=== PATIENT | female | born 1950 | race African-American/Black ===

== ENCOUNTER 2019-02-01 12:09 | Emergency (ER) | payer OTHER ==
[2019-02-01] MEDS ORDERED: SODIUM CHLORIDE 1,000 ML IV SCH (12:15)
--- NOTE | 2019-02-01 12:28 | PDOC ---
History of Present Illness - General Stated Complaint: CVA/TIA Time Seen by Provider: 02/01/19 12:19 - History of Present Illness Initial Comments: 02/01/19 12:25 HPI: 68 y/o F with hx of HTN, HLD, IDDM1, meningioma (on recent MRI), ovarian CA s/p hysterectomy and BSO, colon CA s/p partial colectomy presenting from Dr Hugo's clinic for ruleout stroke. Patient was in her normal state of health at 6am but around 7-8am she felt weakness in her BL legs and had a fall without syncope or LOC. She states she was on the ground for 15-20min because she felt too weak to get up. When she was able to get up she felt weakness in her arms as well as dysphagia and wasnt able to swallow any liquids. During this time she reports LH and SOB. She denies chest pain, abd pain, diaphoresis, n/v, incontinence PMHx: as noted above ROS: as noted SHx: Denies tobacco use; no alcohol use; no rec drugs Allergies: penicillin -> anaphylaxis ROS: GENERAL/CONSTITUTIONAL: No fever or chills. No weakness. HEAD, EYES, EARS, NOSE AND THROAT: No change in vision. No ear pain or discharge. No sore throat. CARDIOVASCULAR: +shortness of breath RESPIRATORY: No cough, wheezing, or hemoptysis. GASTROINTESTINAL: No nausea, vomiting, diarrhea or constipation. GENITOURINARY: No dysuria, frequency, or change in urination. MUSCULOSKELETAL: No joint or muscle swelling or pain. No neck or back pain. SKIN: No rash NEUROLOGIC: No headache, vertigo, loss of consciousness; +change in strength/ sensation. ENDOCRINE: No increased thirst. No abnormal weight change HEMATOLOGIC/LYMPHATIC: No anemia, easy bleeding, or history of blood clots. ALLERGIC/IMMUNOLOGIC: No hives or skin allergy. PE: GENERAL: Awake, alert, and fully oriented, no acute distress HEAD: No signs of trauma, normocephalic, atraumatic EYES: EOMI, sclera anicteric, conjunctiva clear ENT: Auricles normal inspection, hearing grossly normal, nares patent, oropharynx clear without exudates. Moist mucosa NECK: Normal ROM, no lymphadenopathy LUNGS: No increased work of breathing, symmetrical chest rise, clear to auscultation bilaterally, no wheezes, crackles or rhonchi HEART: tachycardia regular rhythm, normal S1 and S2, no murmurs, peripheral pulses 2+ and equal bilaterally. ABDOMEN: Soft, nondistended, nontender, normoactive bowel sounds. No guarding, no rebound. No masses. No CVAT EXTREMITIES: Normal inspection, Normal range of motion, no edema. No clubbing or cyanosis. NEUROLOGICAL: left sided upper and lower droop, facial sensation intact, left U/ L extremities 4/5 str, right side 5/5, no ataxia, mild dysarthria, gait deferred SKIN: Warm, Dry, normal turgor, no rashes or lesions noted tPA Exclusion checklist 3-4.5h - Time Elapsed Date last known well: 02/01/19 Time last known well: 07:00 Elaspsed time: Day(s) and 6 Hour(s) and 1 Minutes - Thrombolytic Therapy Candidate Is patient eligible for thrombolytic therapy: No - Exclusion Criteria 3-4.5 hr SBP greater than 185 or DBP greater than 110mmHg despite tx: No Recent IC/spinal surgery,head trauma or stroke<3mos.: No Hx IC hemorrhage, IC neoplasm, AV malformation or aneurysm: No Active internal bleeding: No Blding diathesis(low plt ct, inc PTT,INR>1.7 or use of NOAC): No Symptoms suggest subarachnoid hemorrhage: No CT demonstrates multilobar infarct(>1/3 cerebral hemiphere): No Arterial puncture at noncompressible site in previous 7 days: No Blood glucose concentration less than 50mg/dL (2.7mmol/L): No - Relative Exclusion Criteria 3-4.5 hr Life expectancy <1 yr or severe co-morbid illness: No : No Patient/family refused: No Rapid improvement: No Stroke severity too mild: No Recent acute [place] (w/in previous 3 months): No Seizure at onset with postictal residual neuro impairments: No Major surgery or serious trauma w/in previous 14 days: No Recent GI or hemorrhage (w/in previous 21 days): No - Add'l Relative Exclusion 3-4.5 hr Age > 80: No Hx of both diabetes AND prior ischemic stroke: No Taking an oral anticoagulant regardless of INR: No NIHSS >25: No - Ineligibility reason(s) Reasons No tPA given: Outside of window - delayed arrival NIH Stroke Scale - Last Known Well Date/Time & Onset Date Last Known Well: 02/01/19 Time Last Known Well: 07:00 - Initial Evaluation Level of consciousness: Alert Ask patient the month and their age: Answers both correctly Ask patient to open & close eyes; make fist and let go: Obeys both correctly Best gaze (horizontal eye movement): Normal Visual field testing: No visual field loss Facial paresis (Show teeth/raise eyebrows/close eyes tight): Complete paralysis of one or both sides (Upper and lower face) Motor Function: Left Arm: Drift Motor Function: Right Arm: Normal (extends arm 90 (or 45) degrees for 10 seconds without drift Motor Function: Left Leg: Drift Motor Function: Right Leg: Normal (extends leg 30 degrees for 5 seconds without drift) Limb Ataxia: No ataxia Sensory(Use pinprick test arms,legs,trunk,face/side to side): Normal Best language (Describe picture, name items, read sentences): No Aphasia Dysarthria (read several words): Mild to moderate slurring of words Extinction and Inattention: No abnormality - Total Score NIH Stroke Scale Score: 6 Past History - Past Medical History Allergies/Adverse Reactions: Allergies Allergy/AdvReac Type Severity Reaction Status Date / Time codeine [Codeine] Allergy Verified 02/01/19 12:34 Penicillins Allergy Verified 02/01/19 12:34 Home Medications: Ambulatory Orders Diltiazem Cd [Cardizem Cd -] 240 mg PO DAILY 07/19/14 Fluticasone Propionate [Flovent Diskus] 50 mcg IH 07/19/14 Losartan Potassium 50 mg PO DAILY 07/19/14 Montelukast Na [Singulair -] 10 mg PO HS 07/19/14 Allopurinol [Zyloprim -] 100 mg PO DAILY 02/01/19 Aspirin [ASA -] 81 mg PO DAILY 02/01/19 Atorvastatin Ca [Lipitor] 40 mg PO HS 02/01/19 Carvedilol 25 mg PO DAILY 02/01/19 Dulaglutide [Trulicity] 0.75 mg SQ WEEKLY 02/01/19 Latanoprost 0.005% Eye Drops [Xalatan 0.005% Eye Drops -] 1 drop OU HS 02/01/19 Anemia: No Asthma: No Cancer: Yes (HX.COLON CANCER) Cardiac Disorders: No CVA: No COPD: No CHF: No Dementia: No Diabetes: Yes GI Disorders: Yes (CONSTIPATION,COLON CANCER,DIVERTICULOSIS) Disorders: No HTN: Yes Hypercholesterolemia: Yes Liver Disease: No Seizures: No Thyroid Disease: No - Surgical History Abdominal Surgery: Yes (LAP BNANDING,UMBILICAL HERNIA) Appendectomy: No Cardiac Surgery: No Cholecystectomy: Yes Lung Surgery: No Neurologic Surgery: No Orthopedic Surgery: Yes (ROTATOR CUFF RIGHT,ARTHROSCOPY R) - Psycho Social/Smoking Cessation Hx Smoking History: Current some day smoker Have you smoked in the past 12 months: Yes Hx Alcohol Use: No Drug/Substance Use Hx: No Substance Use Type: None Hx Substance Use Treatment: No ED Treatment Course - LABORATORY CBC & Chemistry Diagram: 02/01/19 12:20 02/01/19 12:20 - ADDITIONAL ORDERS Additional order review: Laboratory Results 02/01/19 12:14 POC Glucometer 208 02/01/19 12:14 POC Glucometer 208 Medical Decision Making - Medical Decision Making 02/01/19 13:43 68 y/o F with hx of HTN, HLD, IDDM1, meningioma (on recent MRI), ovarian CA s/p hysterectomy and BSO, colon CA s/p partial colectomy presenting from Dr Hugo's clinic for ruleout stroke with left sided weakness and left facial droop. Initial BP 208/121 with HR 118 and improvement without intervention to BP 148/ 102 PE notable for NIHSS 6, dysarthria, slurred speech, left sided facial droop , LUE/LLE 4/5 str. -stroke order set 02/01/19 14:14 Cr 1.9 trop 0.31 WBC 11.7 ekg sinus tach cth: no acute bleed; stable meningioma from last mri; chronic infarcts discussed with Dr Rivera; given Cr 1.9 will transfer to [facility] for fruther eval; not amenable to CTA Spoke to Dr Roman (neuro) and Dr Ashley (ED); transfer accepted patient received 324 ASA per rectum ivf Transfer and arrived; neuro team wanted HR below 110 before transfer; most recent HR 105 Discharge - Discharge Information Problems reviewed: Yes Clinical Impression/Diagnosis: CVA (cerebral vascular accident) Qualifiers: CVA mechanism: unspecified Qualified Code(s): I63.9 - Cerebral infarction, unspecified Condition: Stable Disposition: TRANSFER ACUTE CARE/OTHER HOSP - Follow up/Referral - Patient Discharge Instructions - Post Discharge Activity - Transfer to Acute Care Facility Receiving Facility Name: [facility] Accepting Physician:: Ulises Ashley (ED) and Dai Roman (stroke attending)
[2019-02-01 12:40] VITALS: BMI 41.1
[2019-02-01 12:40] LABS: EOS % 2.9 % (0-4.5); HEMATOCRIT 38.9 % (32.4-45.2); HEMOGLOBIN 12.4 GM/dL (10.7-15.3); MCH 30.4 pg (25.7-33.7); MEAN CELL VOLUME 95.1 fl (80-96); MEAN PLT VOLUME 10.6 fl (7.5-11.1); MONO % 5.4 % (3.8-10.2); NEUT % 77.7 % (42.8-82.8); PLATELET COUNT 143 K/MM3 (134-434); RBC 4.09 M/mm3 (3.60-5.2); RDW 14.2 % (11.6-15.6); WHITE BLOOD COUNT 11.7 K/mm3 (4.0-10.0)
--- NOTE | 2019-02-01 12:41 | PDOC ---
Documentation entered by Asif Bullard SCRIBE, acting as scribe for Dominick Marti MD. Dominick Marti MD: This documentation has been prepared by the Aleah munguia Xhesika, SCRIBE, under my direction and personally reviewed by me in its entirety. I confirm that the documentation accurately reflects all work, treatment, procedures, and medical decision making performed by me. Attending Attestation - Resident Resident Name: Iza Mccarthy - ED Attending Attestation I have performed the following: I have examined & evaluated the patient, The case was reviewed & discussed with the resident, I agree w/resident's findings & plan, Exceptions are as noted - HPI HPI: 02/01/19 12:29 The patient is a 68 year old female with a significant PMH of HTN, HLD, DM, diverticulitis, and colon ca who presents to the emergency department from Dr. Hugo office for L sided facial droop, L arm weakness and slurred speech. The patient states she woke up at 6am today she had breakfast, was walking normally and felt fine. [id number] patient felt weak, had some shortness of breath/ wheezing, fell and had difficulty getting up. Patient notes she was on her way to the cardiology clinic when her symptoms worsened. Patient also endorses intermittent episodes of "wheezing/sob" last couple days The patient denies chest pain, palpitations, vision changes, headache and dizziness. Denies fever, chills, cough, nausea, vomiting, diarrhea and constipation. Denies dysuria, frequency, urgency and hematuria. Allergies: NKDA Neurologist: Dr. Rivera - Physicial Exam PE: 02/01/19 12:30 GENERAL: The patient is awake, alert, and fully oriented, Nontoxic - in no acute distress. HEAD: Normocephalic, atraumatic. EYES: extraocular movements intact, sclera anicteric, conjunctiva clear. ENT: Normal voice, Moist mucous membranes. NECK: Normal range of motion, supple without lymphadenopathy, JVD, or masses. LUNGS: Breath sounds equal, clear to auscultation bilaterally. No wheezes, no crackles, no rales. HEART: tachycardic ABDOMEN: Soft, nontender, normoactive bowel sounds. No guarding, no rebound. No masses. EXTREMITIES: Normal range of motion, no edema. No clubbing or cyanosis. No cords, erythema, or tenderness. NEUROLOGICAL: L facial weakness, L arm drift, L leg drift, finger to nose/rapid alternaing movements intct, visual green intact, EOMI, PSYCH: Normal mood, normal affect. SKIN: Warm, Dry, normal turgor, no rashes or lesions noted. - Critical Care Time Total Critical Care Time: 35 Critical Care Statement: The care of this patient involved high complexity decision making to prevent further life threatening deterioration of the patient 's condition and/or to evaluate & treat vital organ system(s) failure or risk of failure. - Medical Decision Making 02/01/19 12:39 68-year-old presenting with left-sided weakness, slurred speech, time of onset seems to be approximately 7 AM as the patient did fall and was able to get up - after getting up and having breakfast and feeling well. On arrival the patient does have slurred speech and very mild left facial droop as well as upper extremity and lower extremity weakness. NIHSS = 6 Patient is outside the window for TPA BGM was [address] of the head, EKG to screen for arrhythmias Case was discussed with neurology (alysha) 02/01/19 13:04 ekg shows sinus tach here Patient's BP stabilized The patient CT was negative for acute bleed we will give the patient aspirin will discuss with Dr. Reis will obtain CT a to rule out MCA stroke 02/01/19 13:30 Case was discussed with Dr. Reis, would defer the CTA here would transfer to [facility] for further management The patient's creatinine is elevated from baseline 1.9, troponin is at 0.3. Dr. Reis recommends holding off on heparin at this time Patient is slightly hypoxic at 94 over her c lungs are clear, the patient was placed on supplemental oxygen she is satting 98% on 2 L 02/01/19 14:00 Heart Score/ECG Review - ECG Impressions Comment:: 02/01/19 12:40 Twelve-lead EKG was performed and reviewed by me. There is normal sinus rhythm with a rate of 114 Left anterior fascicular block Impression: Sinus tachycardia
[2019-02-01] MEDS ORDERED: ASPIRIN 81 MG CHEWABLE TABLETS PO ONE (12:53)
[2019-02-01 13:06] LABS: INR 0.95 (0.83-1.09); PROTHROMBIN TIME (PATIENT) 11.2 SEC (9.7-13.0)
[2019-02-01 13:08] LABS: ACTIVATED PTT 29.2 SECONDS (25.2-36.5); ALBUMIN 3.8 g/dl (3.4-5.0); BILIRUBIN,TOTAL 0.5 mg/dL (0.2-1); BLOOD UREA NITROGEN 23.9 mg/dL (7-18); CALCIUM 10.1 mg/dL (8.5-10.1); CREATININE 1.9 mg/dL (0.55-1.3); POTASSIUM 4.1 mmol/L (3.5-5.1); TOT PROT 7.7 g/dl (6.4-8.2)
--- NOTE | 2019-02-01 13:24 | CON.NEURO ---
Consult Consult Specialty:: Miguel Referred by:: ER Reason for Consultation:: CVA - History of Present Illness History of Present Illness: 68-year-old right-handed -[place] gentleman with present medical history significant for Coronary artery disease Carpal tunnel syndrome Hypertension Headache postconcussion syndrome Chronic low back pain diabetes Patient presented to the emergency room at [facility] with acute onset of difficulty withspeech facial droopiness on the left side according to the patient she was last known normal at 7:00 this morning. No report of any recent travel no report of any recent head trauma. 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 Stroke protocol was initiated CAT scan of the head revealed no evidence of acute pathology patient was not able to get the CT angiogram due to high creatinine. Patient was stepwise in the emergency room patient failed the dysphagia sit test In the emergency room patient did not improve patient denies stroke scale was 5 - History Source History Provided By: Patient Limitations to Obtaining History: Clinical Condition - Alcohol/Substance Use Hx Alcohol Use: No - Smoking History Smoking history: Current some day smoker Have you smoked in the past 12 months: Yes Home Medications - Allergies Allergies/Adverse Reactions: Allergies Allergy/AdvReac Type Severity Reaction Status Date / Time codeine [Codeine] Allergy Verified 02/01/19 12:34 Penicillins Allergy Verified 02/01/19 12:34 - Home Medications Home Medications: Ambulatory Orders Diltiazem Cd [Cardizem Cd -] 240 mg PO DAILY 07/19/14 Fluticasone Propionate [Flovent Diskus] 50 mcg IH DAILY 07/19/14 Losartan Potassium 50 mg PO DAILY 07/19/14 Montelukast Na [Singulair -] 10 mg PO HS 07/19/14 Allopurinol [Zyloprim -] 100 mg PO DAILY 02/01/19 Aspirin [ASA -] 81 mg PO DAILY 02/01/19 Atorvastatin Ca [Lipitor] 40 mg PO HS 02/01/19 Carvedilol 25 mg PO DAILY 02/01/19 Dulaglutide [Trulicity] 0.75 mg SQ WEEKLY 02/01/19 Latanoprost 0.005% Eye Drops [Xalatan 0.005% Eye Drops -] 1 drop OU HS 02/01/19 Family Medical History Family History: Unable to Obtain Review of Systems - Review of Systems Constitutional: reports: No Symptoms Eyes: reports: No Symptoms Physical Exam-Neuro Vital Signs: Vital Signs Temperature 98.9 F 02/01/19 12:10 Pulse Rate 115 H 02/01/19 12:20 Respiratory Rate 26 H 02/01/19 12:10 Blood Pressure 208/121 H 02/01/19 12:10 O2 Sat by Pulse Oximetry (%) 98 02/01/19 12:20 Labs: CBC, BMP 02/01/19 12:20 02/01/19 12:20 INR, PTT INR 0.95 (0.83-1.09) 02/01/19 12:20 NIH Stroke Scale - Last Known Well Date/Time & Onset Date Last Known Well: 02/01/19 Time Last Known Well: 07:00 - Initial Evaluation Level of consciousness: Alert Ask patient the month and their age: Answers both correctly Ask patient to open & close eyes; make fist and let go: Obeys both correctly Best gaze (horizontal eye movement): Normal Visual field testing: No visual field loss Facial paresis (Show teeth/raise eyebrows/close eyes tight): Minor paralysis ( flattened nasolabial fold, asymmetry on smiling) Motor Function: Left Arm: Drift Motor Function: Right Arm: Normal (extends arm 90 (or 45) degrees for 10 seconds without drift Motor Function: Left Leg: Drift Motor Function: Right Leg: Normal (extends leg 30 degrees for 5 seconds without drift) Limb Ataxia: Present in one limb Sensory(Use pinprick test arms,legs,trunk,face/side to side): Mild to moderate decrease in sensation Best language (Describe picture, name items, read sentences): No Aphasia Dysarthria (read several words): Mild to moderate slurring of words Extinction and Inattention: Inattention or extinction bilaterally to one of the sensory modalities - Total Score NIH Stroke Scale Score: 7 Imaging - Results Cat Scan: Image Reviewed Problem List - Problems (1) CVA (cerebral vascular accident) Assessment/Plan: acute right middle cerebral arteryinfarct risk factors are hypertension diabetes patient unfortunately is outside the window for the intravenous thrombolysis Patient unfortunately with high creatinine level that he cannot do CT angiogram I prefer the patient to go right now to the emergency room at [facility] to be transferred to the interventional radiology for thrombectomy. Nothing by mouth. Neuro checks every 1 hour. MRI of the brain with no contrast. MRA of the brain with no contrast. Aspirin per rectum Code(s): I63.9 - CEREBRAL INFARCTION, UNSPECIFIED
[2019-02-01] MEDS ORDERED: ASPIRIN 300 MG SUPP.RECT RC ONE (13:45)
[2019-02-01 14:33] VITALS: BP 159/104; PULSE 114; TEMP 98
[2019-02-01 14:42] LABS: EPI CELLS 5.4 /HPF (0-5/HPF); HYALINE CASTS 4 /lpf (0-8); URINE APPEARANCE CLOUDY; URINE BACTERIA 136.6 /hpf (NEGATIVE); URINE BILIRUBIN NEGATIVE (NEGATIVE); URINE COLOR YELLOW; URINE GLUCOSE (UA) TRACE (NEGATIVE); URINE KETONE NEGATIVE (NEGATIVE); URINE LEUK ESTERASE NEGATIVE (NEGATIVE); URINE NITRITE NEGATIVE (NEGATIVE); URINE PROTEIN 3+ (NEGATIVE); URINE RBC 2 /hpf (0-4); URINE UROBILINOGEN 0.2 mg/dL (0.2-1.0); URINE WBC 5 /hpf (0-5)
[2019-02-01 15:02] LABS: URINE CRYSTALS REVIEW /hpf
[2019-02-02] MEDS ORDERED: ASPIRIN 300 MG SUPP.RECT RC SCH (10:00)
--- NOTE | 2019-02-02 12:17 | EKG ---
Test Reason : Blood Pressure : / mmHG Vent. Rate : 114 BPM Atrial Rate : 114 BPM P-R Int : 174 ms QRS Dur : 094 ms QT Int : 340 ms P-R-T Axes : 048 -71 050 degrees QTc Int : 468 ms POOR DATA QUALITY, INTERPRETATION MAY BE ADVERSELY AFFECTED SINUS TACHYCARDIA POSSIBLE LEFT ATRIAL ENLARGEMENT LEFT ANTERIOR FASCICULAR BLOCK ABNORMAL ECG WHEN COMPARED WITH ECG OF 07-OCT-2006 21:28, NO SIGNIFICANT CHANGE WAS FOUND Confirmed by ITA WILSON MD ([id number]) on 02/02/2019 12:17:28 PM Referred By: Confirmed By:ITA WILSON MD
== END 2019-02-01 14:40 | disposition short-term general hospital (02) ==
LOC: JER 12:09
DX: I63.9 Cerebral infarction, unspecified (principal); R29.810 Facial weakness; G81.94 Hemiplegia, unspecified affecting left nondominant side; R47.81 Slurred speech; Z72.0 Tobacco use; W19.XXXA Unspecified fall, initial encounter; Y93.89 Activity, other specified; Y92.038 Other place in apartment as the place of occurrence of the external cause; Y99.8 Other external cause status; I10 Essential (primary) hypertension; E78.5 Hyperlipidemia, unspecified; E10.9 Type 1 diabetes mellitus without complications; Z79.4 Long term (current) use of insulin; Z85.43 Personal history of malignant neoplasm of ovary; Z85.038 Personal history of other malignant neoplasm of large intestine; Z90.710 Acquired absence of both cervix and uterus; Z90.79 Acquired absence of other genital organ(s); Z90.722 Acquired absence of ovaries, bilateral; Z90.49 Acquired absence of other specified parts of digestive tract
CPT/HCPCS: 36415; 70450-TC; 80053; 81003; 82465; 82550; 82962; 83718; 83721; 84478; 84484; 85025; 85610; 85730; 86850; 86900; 86901; 93005; 93010; 99285-25; J7030